=== PATIENT | male | born 1950 | race Caucasian/White ===

== ENCOUNTER → 2021-05-13 07:20 | Outpatient (CLI) | payer MEDICARE, SELFPAY ==
--- NOTE | ~2021-05-13 | US_ITS ---
EXAMINATION: US right upper quadrant EXAM DATE: 05/13/2021 08:00 INDICATION: Elevated liver function tests. TECHNIQUE: Multiple grayscale and Doppler images of the abdomen right upper quadrant were obtained (b y a technologist who performed the scan) and subsequently reviewed. Comparison is made to prior exami nation from 08/16/2016. FINDINGS: The pancreatic head and body are normal in appearance. The pancreatic tail is not visualized. There is echogenic liver parenchyma, hepatic steatosis. There are no focal liver lesions identified. Th ere is no evidence of intrahepatic biliary duct dilation. Portal venous flow was seen in the hepatop edal, normal direction and has normal Doppler waveform. No right-sided hydronephrosis. Common bile duct measures 4 mm, which is normal. The gallbladder wall is normal in thickness, with ex pected amount of distention. No sonographic evidence of pericholecystic fluid. There is no cholelit hiases. Technologist performing exam reports patient did not demonstrate sonographic Bojorquez's sign. Please note that this sign is less reliable in patients who have received pain medication. IMPRESSION: 1. Hepatic steatosis. 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 Hepatic steatosis.
== END ==
PROVIDERS: Visit Provider Internal Medicine Gastroenterology
DX: R94.5 Abnormal results of liver function studies (principal); B19.20 Unspecified viral hepatitis C without hepatic coma; K76.0 Fatty (change of) liver, not elsewhere classified
CPT/HCPCS: 76705

== ENCOUNTER 2022-02-18 19:29 | Inpatient (IN) | payer MEDICARE, SELFPAY ==
[2022-02-18] VITALS (12 sets, daily range): BP systolic 144–165; BP diastolic 80–110; PULSE 81–95; RESP 12–22; TEMP 36.2–36.7; O2SAT 95–98; BMI 26.6
--- NOTE | ~2022-02-18 | MR_ITS ---
EXAMINATION: MR brain/brain stem wo/w con DATE: 02/19/2022 15:35 INDICATION: Cerebrovascular accident. Left hemiparesis. TECHNIQUE: Magnetic resonance imaging (MRI) of the brain and brainstem was performed without and with 18 mL MultiHance intravenous contrast. COMPARISON: Head CT 02/18/2022 FINDINGS: There is an acute infarct in superior left cerebellum. There is no intracranial hemorrhage or abnormal mass lesion. There are scattered areas of nonspecific increased T2-weighted signal intens ity in the cerebral white matter, which is within normal limits for the patient's age. The ventricles are normal in size. The paranasal sinuses are clear. The mastoid air cells are normal. The orbits ar e normal. IMPRESSION: 1. 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 Reviewed, dictated and finalized at location A.
--- NOTE | ~2022-02-18 | XR_ITS ---
MODIFIED ESOPHAGRAM HISTORY: Stroke TECHNIQUE: Modified barium esophagram was performed on 02/20/2022. I administered fluoroscopy and perf ormed the exam with speech pathologist. Patient was seated for lateral fluoroscopic imaging for ernestina stion of thin liquids, pudding, solids and quantified amounts, followed by thin liquids in uncontroll ed amounts. This was recorded on tape. A single fluoroscopic spot image was also recorded. The DAP fo r this procedure was 1.387 Gycm2. The amount of fluoroscopy time used during this procedure was 1.9 m inutes. FINDINGS: Oral stage: Adequate function. Pharyngeal stage: There is reduced pharyngeal squeeze with some pharyngeal wall and vallecular residu e. No laryngeal penetration or aspiration. Cervical/esophageal stage: Adequate function. IMPRESSION: Mild pharyngeal dysphagia without laryngeal penetration or aspiration. Please correlate with speech pathologist findings and specific feeding recommendations. Reviewed, dictated and finalized at location A. IMPRESSION: Mild pharyngeal dysphagia without laryngeal penetration or aspirati on. Please correlate with speech pathologist findings and specific feeding rec ommendations.
--- NOTE | ~2022-02-18 | CT_ITS ---
Patient Name: Patient Name MR#: Patient MRN Accession#: Accession Numbers EXAMINATION: CTA brain carotid DATE: 02/18/2022 19:54 INDICATION: L sided weakness TECHNIQUE: Computed tomographic angiography (CTA) of the head was performed without and with 100 mL O mnipaque-350 intravenous contrast. CTA of the neck was performed with intravenous contrast. The dose- length product was 1888.26 mGy-cm. Maximum intensity projection and volume rendered 3D-reconstruction s were created by the technologist on a separate workstation. COMPARISON: None. FINDINGS: CT BRAIN: No acute large vessel infarct, intracranial hemorrhage, mass, or hydrocephalus. CTA HEAD: No large vessel occlusion, aneurysm, high flow vascular malformation, nidus or extravasation. Promine nt right PCOM. CTA NECK: Aortic arch and proximal great vessels: Left vertebral artery originates directly from the arch. Right common carotid, carotid bifurcation, and internal carotid artery: No significant plaque.There i s 0% stenosis of the proximal right internal carotid artery relative to normal distal artery lumen di ameter (NASCET criteria). Left common carotid, carotid bifurcation, and internal carotid artery: No significant plaque.There is 0% stenosis of the proximal left internal carotid artery relative to normal distal artery lumen diam eter (NASCET criteria). Vertebral arteries: No significant plaque or stenosis. Right vertebral artery is dominant, Other findings: Severe multilevel degenerative disc disease and facet arthropathy in the cervical spi ne. IMPRESSION: No acute large vessel infarct. No significant carotid or vertebral artery stenosis. Reviewed, dictated and finalized at location K. IMPRESSION: No acute large vessel infarct. No significant carotid or vertebral artery steno sis.
[2022-02-18 19:45] LABS: Estimated Glomerular Filt Rate > 60
--- NOTE | 2022-02-18 19:47 | ECG_ITS ---
Measurements Intervals [place] Rate: 91 P: 54 VT: 174 QRS: 113 QRSD: 157 T: -1 QT: 407 QTc: 502 Interpretive Statements SINUS RHYTHM RIGHT BUNDLE BRANCH BLOCK [120+ ms QRS DURATION, UPRIGHT V1, 40+ ms S IN I/aVL/V4/V5/V6] LEFT POSTERIOR FASCICULAR BLOCK [QRS AXIS > 109, INFERIOR Q] ABNORMAL ECG NO PREVIOUS ECG AVAILABLE FOR COMPARISON Electronically Signed On 02-19-2022 16:54:33 CDT by Vinny Toribio M.D.
[2022-02-18 20:01] LABS: Basophils Absolute Auto 0.1 K/mm3 (0.0-0.1); Basophils Percent Auto 0.7 % (0.2-1.2); Eosinophils Absolute Auto 0.2 K/mm3 (0-0.3); Eosinophils Percent Auto 1.9 % (0-4.4); Hematocrit 43.9 % (42.0-52.0); Hemoglobin 14.2 g/dL (14.0-18.0); Immature Granulocyte Absolute 0.03 K/mm3 (0.00-0.031); Immature Granulocyte Percent A 0.4 % (0-0.5); Lymphocytes Absolute Auto 2.55 K/mm3 (0.9-3.2); Lymphocytes Percent Auto 30.9 % (18.3-44.2); Mean Corpuscular HGB Conc 32.3 g/dl (32-36); Mean Corpuscular Hemoglobin 24.8 pg (26-34); Mean Corpuscular Volume 76.6 fl (80-100); Mean Platelet Volume 10.9 fl (7.4-10.4); Monocytes Absolute Auto 0.6 K/mm3 (0.1-0.6); Monocytes Percent Auto 7.3 % (2.6-8.5); Neutrophils Absolute Auto 4.9 K/mm3 (1.3-6.7); Neutrophils Percent Auto 58.8 % (45.5-73.1); Platelet Count Result 193 k/mm3 (150-375); Red Blood Count 5.73 M/mm3 (4.6-6.20); Red Cell Distribution Width 14.6 % (11.5-14.5); White Blood Count 8.3 K/mm3 (4.5-10.0)
--- NOTE | 2022-02-18 20:02 | ED.GENADULT ---
HPI - General Adult General Chief complaint: Suspected CVA Stated complaint: l sided weakness Time Seen by Provider: 02/18/22 19:30 History of Present Illness HPI narrative: Patient 71-year-old gentleman who presents the emergency department with chief complaint of left-sided weakness. The patient reports that around 630. Patient reports that he had weakness develops on the left side of his body and felt as though he could not walk. Patient noticed that his speech was a little slurred at the time reports that his symptoms have been improving. EMS was called and they noted a fast ED score of 1 due to patient reporting that his speech felt off. Related Data Allergies Allergy/AdvReac Type Severity Reaction Status Date / Time NKDA Allergy Unknown Uncoded 12/15/02 12:23 NKFA Allergy Unknown Uncoded 12/15/02 12:23 Review of Systems Review of Systems: A 10 system review of systems was completed on the patient and is negative except for what is stated in the HPI. Nursing and ancillary documentation was reviewed. PMFSH Comments History of hypertension and diabetes that is controlled with oral medications Exam Narrative: GENERAL: Well-appearing, well-nourished, and in no acute distress. HEAD: Normocephalic, atraumatic. EYES: PERRLA and EOMI. ENT: Nares clear, no rhinorrhea or epistaxis. Mucous membranes moist. NECK: Supple. CHEST: Clear to auscultation. No respiratory distress. HEART: Regular rate and rhythm. No murmur heard. Normal peripheral pulses. ABDOMEN: Soft, nontender, nondistended, normal active bowel sounds. EXTREMITIES: Normal range of motion. No edema. SKIN: Warm, dry, no rash. NEURO: No focal deficits. Alert and oriented x3. Patient had some limb ataxia of the left upper extremity, and a slight drift of the left upper extremity on exam. PSYCH: Normal mood and affect. Course Course Emergency Course: Case was discussed with stroke neurology on-call at [facility]. At this time the patient is not a tPA candidate and not a candidate for intervention as his NIH stroke scale is extremely low. I recommended local admission with stroke work-up. Vital Signs Vital signs: Vital Signs Temperature 36.2 C L 02/18/22 19:54 Pulse Rate 95 02/18/22 19:54 Respiratory Rate 20 02/18/22 19:54 Blood Pressure 161/92 H 02/18/22 19:54 Pulse Oximetry 97 02/18/22 19:54 Oxygen Delivery Room Air 02/18/22 19:54 Temperature 36.2 C L 02/18/22 19:54 Pulse Rate 95 02/18/22 19:54 Respiratory Rate 20 02/18/22 19:54 Blood Pressure 161/92 H 02/18/22 19:54 Pulse Oximetry 97 02/18/22 19:54 Oxygen Delivery Room Air 02/18/22 19:54 Medical Decision Making Vital Signs Vital Signs: Vital Signs Temperature 36.2 C L 02/18/22 19:54 Pulse Rate 95 02/18/22 19:54 Respiratory Rate 20 02/18/22 19:54 Blood Pressure 161/92 H 02/18/22 19:54 Pulse Oximetry 97 02/18/22 19:54 Oxygen Delivery Room Air 02/18/22 19:54 Temperature 36.2 C L 02/18/22 19:54 Pulse Rate 95 02/18/22 19:54 Respiratory Rate 20 02/18/22 19:54 Blood Pressure 161/92 H 02/18/22 19:54 Pulse Oximetry 97 02/18/22 19:54 Oxygen Delivery Room Air 02/18/22 19:54 Lab Data Result diagrams: 02/18/22 19:51 02/18/22 19:51 Labs: Lab Results 02/18/22 02/18/22 02/18/22 Range/Units 19:44 19:51 19:51 WBC 8.3 (4.5-10.0) K/mm3 RBC 5.73 (4.6-6.20) M/mm3 Hgb 14.2 (14.0-18.0) g/dL Hct 43.9 (42.0-52.0) % MCV 76.6 L (80-100) fl MCH 24.8 L (26-34) pg MCHC 32.3 (32-36) g/dl RDW 14.6 H (11.5-14.5) % Plt Count 193 (150-375) k/mm3 MPV 10.9 H (7.4-10.4) fl Immature Gran % (Auto) 0.4 (0-0.5) % Neut % (Auto) 58.8 (45.5-73.1) % Lymph % (Auto) 30.9 (18.3-44.2) % Tyler % (Auto) 7.3 (2.6-8.5) % Eos % (Auto) 1.9 (0-4.4) % Baso % (Auto) 0.7 (0.2-1.2) % Lymph # (Auto) 2.55 (0.9-3.2) K/mm3 Tyler # (A
[2022-02-18 20:11] LABS: Alanine Aminotransferase 21 U/L (6-50); Albumin Level 4.8 g/dL (3.5-5.1); Alkaline Phosphatase 91 U/L (38-126); Anion Gap 15 mmol/L (8-16); Aspartate Amino Transferase 29 U/L (17-59); Bilirubin,Total 0.5 mg/dL (0.2-1.3); Blood Urea Nitrogen 16 mg/dL (9-20); Calcium 9.1 mg/dL (8.4-10.2); Carbon Dioxide 22 mmol/L (22-30); Chloride 104 mmol/L (98-107); Estimated Glomerular Filt Rate 60; Glucose 185 mg/dL (65-110); Potassium 3.7 mmol/L (3.4-5.0); Sodium 141 mmol/L (137-145)
[2022-02-18 20:12] LABS: Lactic Acid Reflex 1.4 mmol/L (0.7-2.0)
[2022-02-18 20:22] LABS: INR 1.1; Prothrombin Time 13.5 Seconds (11.1-14.7)
[2022-02-18 20:23] LABS: Partial Thromboplastin Time 23.8 SECONDS (22.3-36.8); Troponin I < 0.012 ng/mL (0.000-0.034)
[2022-02-18] MEDS: SODIUM CHLORIDE 0.9% IV 1,000 ML 999 ML IV CONT (20:38)
[2022-02-18] MEDS: METOCLOPRAMIDE HCL INJ 10 MG/2 ML VIAL IV PUSH (20:51)
[2022-02-18 20:56] LABS: Appearance Urine Clear (Clear); Bilirubin Urine Negative (Negative); Blood Urine Negative (Negative); Color Urine Yellow (Yellow); Glucose Urine UA 3+ mg/dL (Negative); Ketones Urine Negative (Negative); Leukocyte Esterase Ur Negative LEU/UL (Negative); Nitrate Urine Negative (Negative); Protein Urine Negative (Negative); Urobilinogen Urine 0.2 mg/dL (<2.0)
--- NOTE | 2022-02-18 20:56 | PM.IMHP ---
H&P: HPI History of Present Illness Date/Time: 02/18/22 20:56 Chief Complaint: left-sided weakness Narrative: This is a 71-year-old male with past medical history significant for hypertension, type 2 diabetes mellitus, gastroesophageal reflux disease, patient comes to the emergency room after he had an episode of right-sided weakness, this was at around 6 30-7 p.m. last time the patient was normal was around that time, he denies any issues before this time, no lightheadedness, no syncope, no near syncope, no fevers, no rigors, no chills, no cough, no sputum production, no nausea, no of , no abdominal pain, no diarrhea, no headaches, no vision changes, no vertigo, no focal sensorimotor deficit. Patient was feeding his cats outside when this episode took place immediately 1 going inside the house patient felt weakness of the left side was stumbling around and had slight headache on the left frontal temporal area. in emergency room patient was found to have a score of 2 in the stroke scale a stroke team Luke morales was consulted and he was felt the patient was not a candidate for tPA. Patient is been placed in observation for further management evaluation and treatment. Review of Systems Review of Systems: Left-sided weakness Constitutional: Constitutional: Denies chills, Denies fatigue, Denies fever(s), Denies malaise, Denies night sweats, Denies poor appetite and Denies weakness Eyes: Eyes: Denies change in vision ENT: Denies dysphagia, Denies vertigo, Denies dizziness and Denies odynophagia Cardiovascular: Cardiovascular: Denies syncope, Denies irregular heart rhythm, Denies lightheadedness, Denies palpitations and Denies dyspnea on exertion Respiratory: Respiratory: Denies chest congestion, Denies cough, Denies excessive phlegm production, Denies pain on inspiration, Denies dyspnea and Denies dyspnea on exertion Gastrointestinal: Gastrointestinal: Denies abdominal pain, Denies dyspepsia, Denies heartburn, Denies diarrhea, Denies nausea and Denies vomiting Genitourinary: Genitourinary: Denies dysuria Musculoskeletal: Musculoskeletal: Denies arthralgias, Denies joint swelling, Denies muscle weakness, Denies neck pain and Denies numbness Integumentary/Breasts: Skin/Breast: Denies rash Neurologic: Reports abnormal gait, Denies vertigo, Denies dizziness, Denies syncope, Reports focal weakness ( left hemibody), Denies Other visual disturbances, Denies Sensory deficit (Neuro) and Reports weakness Psychiatric: Psychiatric: Reports no additional psychiatric complaints and Reports as per HPI Endocrine: Endocrine: Denies cold intolerance, Denies flushing, Denies heat intolerance, Denies polyphagia, Denies polydipsia and Denies palpitations Hematologic/Lymphatic: Hematologic/Lymphatic: Reports no additional hematologic/lymphatic complaints and Reports as per HPI Allergic/Immunologic: Allergic/Immunologic: Reports no additional allergic/immunologic complaints and Reports as per HPI PMFSH Family History Family History (Updated 02/18/22 @ 23:54 by ANSELMO Arndt) Mother Myasthenia gravis Hyperlipidemia Emphysema of lung Father Diabetes mellitus Heart disease Hypertension Dementia Daughter Graves disease Alopecia Social History Social History Smoking packs per day: 2 Smoking cigarettes per day: 40.0 Years smoked: 34 Smoking pack-years: 68.00 Smoking status: Former smoker Tobacco type: cigarettes Smoking end date: 02/19/00 Alcohol intake: former Drinks per week: 3 Substance use: never Spiritual care concerns: No Meds Home Medications and Allergies Home Medications Medication Instructions Recorded Confirmed Type amlodipine 10 mg tablet 10 mg PO DAILY 02/19/22 02/19/22 History dapagliflozin 10 mg tablet 10 mg PO DAILY 02/19/22 02/19/22 History (Cat[place]) dicyclomine 10 mg capsule 20 mg PO DAILY 02/19/22 0
[2022-02-18 21:02] LABS: Mucus Urine Rare /lpf; RBC Urine 0-2 /hpf (0-2)
[2022-02-18 21:08] LABS: Add Urine Microscopic? YES
[2022-02-18 21:20] LABS: Amphetamine Screen Urine Negative (Negative); Barbiturate Screen Urine Negative (Negative); Benzodiazepines Screen Urine Negative (Negative); Cannabinoid Screen Urine Negative (Negative); Cocaine Screen Urine Negative (Negative); Methadone Screen Urine Negative (Negative); Opiate Screen Urine Negative (Negative); Phencyclidine Screen Urine Negative (Negative)
[2022-02-18 21:44] LABS: Influenza A QL RT-PCR Negative (Negative); Influenza B QL RT-PCR Negative (Negative); SARS-CoV-2 RNA PCR Negative
--- NOTE | 2022-02-18 22:14 | PC.NURSE ---
Called IMU and nurse stated they were unaware they were getting a patient. House sup states that IMU charge is in a rapid response.
--- NOTE | 2022-02-18 22:35 | PC.NURSE ---
Called IMU to give report spoke to Chely. Nurse states staff is still in with the Rapid response team.
[2022-02-18 23:10] LABS: Troponin I < 0.012 ng/mL (0.000-0.034)
[2022-02-18 23:29] LABS: Glucose Point of Care 194 mg/dl (65-105)
--- NOTE | 2022-02-18 23:31 | ADMGEN ---
This patient, Miguel Cobos, was admitted to IMU Room 214-01. Patient/family oriented to hospital policies and general routines including ID bracelet, bed and alarms, visiting hours, pain management, procedures, bathroom and other care routines, personal items, smoking policy, room service/diet, and visiting hours. Information on how to activate the Rapid Response Team has been discussed. Patient/Family are encouraged to report perceived risks to care and to ask questions if they do not understand what they are told or what they should do.
[2022-02-19] VITALS (16 sets, daily range): BP systolic 142–179; BP diastolic 75–91; PULSE 75–97; RESP 16–20; TEMP 36.1–36.9; O2SAT 95–100
--- NOTE | 2022-02-19 | ECHO_ITS ---
Patient Info Name: Miguel Cobos Age: 71 years : 1950 Gender: Male Ht: 72 in Wt: 196 lbs BSA: 2.14 m2 HR: 76 bpm BP: 142 / 75 mmHg Heart Rhythm: Sinus Rhythm Technical Quality: Fair Exam Date: 02/19/2022 11:20 AM Exam Location: Echo Lab Patient Status: Outpatient Admit Date: 02/18/2022 Staff Ordering Physician: Elvia Tan MD Plastic Technician: Darby Waller RDCS Attending Provider: Elvia Tan MD Referring Physician: Britney KNAPP; Exam Type: CA echo doppler color flow Study Info Indications - stroke Complete two-dimensional, color flow and Doppler transthoracic echocardiogram is performed. Summary 1. Complete two-dimensional, color flow and Doppler transthoracic echocardiogram is performed. 2. Left ventricular chamber dimension is normal. 3. Left ventricular systolic function is normal, estimated at 65-70%. 4. The left ventricular diastolic function is grade I diastolic dysfunction. 5. E/e' 11 is mildly elevated. 6. There is trace mitral valve regurgitation. 7. There is trace tricuspid valve regurgitation. 8. No pulmonary hypertension, estimated pulmonary arterial systolic pressure is 18 mmHg. Left Ventricle E/e' 11 is mildly elevated. Left ventricular chamber dimension is normal. Left ventricular systolic function is normal, estimated at 65-70%. The left ventricular diastolic function is grade I diastolic dysfunction. Right Ventricle Right ventricular systolic function is normal and with normal TAPSE 2.3 cm. Right ventricular chamber dimension is normal. Left Atria Left atrial chamber dimension is normal. Right Atria Right atrial chamber dimension is normal. Aortic Valve The aortic valve is trileaflet. There is no aortic valve stenosis. There is no aortic valve regurgitation. Pulmonic Valve There is no pulmonic regurgitation. Mitral Valve There is no mitral valve stenosis. There is trace mitral valve regurgitation. Tricuspid Valve There is trace tricuspid valve regurgitation. No pulmonary hypertension, estimated pulmonary arterial systolic pressure is 18 mmHg. Pericardium/Pleural There is no pericardial effusion. Inferior Vena Cava Normal inferior vena cava with >50% collapse upon inspiration consistent with normal right atrial pressure, 5 mmHg. Aorta The aortic root size at the sinus of Valsalva is normal. Left Ventricular Outflow Tract Name Value Normal LVOT 2D LVOT Diameter 2.1 cm LVOT Doppler LVOT Peak Gradient 3 mmHg LVOT Mean Gradient 1 mmHg LVOT VTI 17 cm LVOT VTI/AV VTI Ratio 0.5 LVOT Stroke Volume 59 ml LVOT CO 5.0 l/min LVOT CI 2.4 l/min/m2 Mitral Valve Name Value Normal MV Doppler
[2022-02-19] MEDS: SODIUM CHLORIDE 0.9% IV 1,000 ML 125 ML IV CONT ×3 (01:35→18:41)
[2022-02-19 07:50] LABS: Glucose Point of Care 163 mg/dl (65-105)
[2022-02-19] MEDS: ONDANSETRON INJ 4 MG/2 ML VIAL IV PUSH (08:24)
--- NOTE | 2022-02-19 08:40 | WPDNEURCNPN ---
Assessment and Plan Assessment and plan (1) Left-sided weakness: Code(s): R53.1 - Weakness Status: Acute Assessment and Plan: Mr. Cobos is a 71 year old male who presented with L sided weakness. Exam showed subtle weakness with L plantarflexion and some dysmetria with L FNF. Concerning for possible stroke. - MRI brain w/o contrast - Surface echo with bubble study - Continue ASA 81mg - Check A1c and Lipid panel, will need a statin Consult date: 02/19/22 Reason for consult: Concern for stroke HPI: Miguel Cobos is a 71 year old male with a history of HTN, DM, GERD who presented with L sided weakness. Last known well was 7pm on02/18/22. In addition to the L sided weakness he also had a slight headache on the L frontal area. He was also having word finding difficulty at the time. He denies any vision issues or numbness. He was taken to [facility] ED where he had an NIH score of 2. After discussion with stroke team decision was made that patient was not a candidate for tPA. He had a CT head which was negative and CTA head and neck which showed no evidence of stenosis or occlusion. He was admitted for further stroke work-up. Patient reports that today he still feels a little week but feels better. He feels like his speech is back to normal. No family history of stroke. Review of Systems Constitutional: Constitutional: Denies chills, Denies lethargy and Reports weakness Eyes: Eyes: Reports no additional eye complaints ENT: Reports system reviewed and no additional complaints, except as documented Cardiovascular: Cardiovascular: Denies chest pain Respiratory: Respiratory: Denies cough and Denies dyspnea Gastrointestinal: Gastrointestinal: Denies abdominal pain, Denies constipation and Denies diarrhea Genitourinary: Genitourinary: Reports no additional male genitourinary complaints Musculoskeletal: Musculoskeletal: Reports no additional musculoskeletal complaints Integumentary/Breasts: Skin/Breast: Reports system reviewed and no additional complaints, except as docu Neurologic: Reports as per HPI Psychiatric: Psychiatric: Reports no additional psychiatric complaints [facility] Family History Family History Mother Myasthenia gravis Hyperlipidemia Emphysema of lung Father Diabetes mellitus Heart disease Hypertension Dementia Daughter Graves disease Alopecia Social History Social History Smoking packs per day: 2 Smoking cigarettes per day: 40.0 Years smoked: 34 Smoking pack-years: 68.00 Smoking status: Former smoker Tobacco type: cigarettes Smoking end date: 02/19/00 Alcohol intake: former Drinks per week: 3 Substance use: never Spiritual care concerns: No Meds Home Medications and Allergies Home Medications Medication Instructions Recorded Confirmed Type amlodipine 10 mg tablet 10 mg PO DAILY 02/19/22 02/19/22 History dapagliflozin 10 mg tablet 10 mg PO DAILY 02/19/22 02/19/22 History (Farxiga) dicyclomine 10 mg capsule 20 mg PO DAILY 02/19/22 02/19/22 History gabapentin 100 mg capsule 100 mg PO DAILY 02/19/22 02/19/22 History glipizide 5 mg tablet 5 mg PO DAILY 02/19/22 02/19/22 History lisinopril 20 mg tablet 20 mg PO DAILY 02/19/22 02/19/22 History mecobalamin (vitamin B12) 1,000 1,000 mcg PO DAILY 02/19/22 02/19/22 History mcg chewable tablet metformin 500 mg tablet 500 mg PO DAILY 02/19/22 02/19/22 History omeprazole magnesium 20 mg 20 mg PO DAILY 02/19/22 02/19/22 History tablet,delayed release (Prilosec OTC) Allergies Allergy/AdvReac Type Severity Reaction Status Date / Time NKDA Allergy Unknown Uncoded 12/15/02 12:23 NKFA Allergy Unknown Uncoded 12/15/02 12:23 Vital Signs Vital Signs - 24 hr 02/18/22 19:54 02/18/22 20:39 02/18/22 20:45 Temperature 36.2 C L Pulse Rate 95 92 90 Respiratory Rate 20 14 12 B
[2022-02-19 11:49] LABS: Glucose Point of Care 142 mg/dl (65-105)
--- NOTE | 2022-02-19 16:25 | PCSTNOTE ---
Please refer to the Bedside Swallow Evaluation in the EMR. Please note, silent aspiration cannot be ruled out at bedside.
[2022-02-19 17:36] LABS: Glucose Point of Care 155 mg/dl (65-105)
[2022-02-19] MEDS: DICYCLOMINE HCL 10 MG CAPSULE 20 MG PO (17:41)
[2022-02-19] MEDS: CYANOCOBALAMIN 1,000 MCG TABLET 1000 MCG PO (17:41)
[2022-02-19] MEDS: lisinopriL 20 MG TABLET PO (17:41)
[2022-02-19] MEDS: GABAPENTIN 100 MG CAPSULE PO (17:42)
[2022-02-19] MEDS: PANTOPRAZOLE 40 MG TABLET PO (17:42)
[2022-02-19] MEDS: ASPIRIN 81 MG CHEWABLE TABLET PO (17:42)
[2022-02-19] MEDS: amLODIPine BESYLATE 5 MG TABLET 10 MG PO (17:42)
--- NOTE | 2022-02-19 18:03 | PM.IMPN ---
Progress Note: A&P Assessment and Plan (1) Stroke: Code(s): I63.9 - Cerebral infarction, unspecified Status: Acute Assessment and Plan: CTA with no large vessel thrombosis will obtain MRI in the morning echocardiogram in the morning 02/19/2022 interval history: 71-year-old male presented with left-sided weakness CT scan of the head and CTA of the head are essentially normal to further evaluate patient had MRI of the brain showed patient has acute left superior cerebellum infarct, cardiac echo is essentially normal with grade 1 diastolic dysfunction, patient started on aspirin and Lipitor. Plavix for 3 months, (2) Hypertension: Code(s): I10 - Essential (primary) hypertension Status: Acute Assessment and Plan: resume home meds continue to monitor (3) Type 2 diabetes mellitus: Code(s): E11.9 - Type 2 diabetes mellitus without complications Status: Acute Assessment and Plan: holding for seizure, holding metformin, holding glipizide insulin sliding scale carb consistent diet blood glucose a.c. and HS Subjective Date/time seen: 02/19/22 18:03 HPI-Narrative: ?This is a 71-year-old male with past medical history significant for hypertension, type 2 diabetes mellitus, gastroesophageal reflux disease, patient comes to the emergency room after he had an episode of right-sided weakness, this was at around 6 30-7 p.m. last time the patient was normal was around that time,? he denies any issues before this time, no lightheadedness, no syncope, no near syncope, no fevers, no rigors, no chills, no cough, no sputum production, no nausea, no of [place], no abdominal pain, no diarrhea, no headaches, no vision changes, no vertigo, no focal sensorimotor deficit.? Patient was? feeding his cats outside when this episode took place immediately 1 going inside the house patient felt weakness of the left side was stumbling around and had slight headache on the left frontal? temporal area. in emergency room patient was found to have a score of 2 in the stroke scale a stroke team Luke morales was consulted and he was felt the patient was not a candidate for tPA.? Patient is been placed in observation for further management evaluation and treatment. 02/19/2022 interval history: 71-year-old male presented with left-sided weakness CT scan of the head and CTA of the head are essentially normal to further evaluate patient had MRI of the brain showed patient has acute left superior cerebellum infarct, cardiac echo is essentially normal with grade 1 diastolic dysfunction, patient started on aspirin and Lipitor. Plavix for 3 months, Review of Systems Review of Systems: left-sided weakness Constitutional: Constitutional: Denies chills, Denies lethargy and Reports weakness Eyes: Eyes: Reports no additional eye complaints ENT: Reports system reviewed and no additional complaints, except as documented Cardiovascular: Cardiovascular: Denies chest pain Respiratory: Respiratory: Denies cough and Denies dyspnea Gastrointestinal: Gastrointestinal: Denies abdominal pain, Denies constipation and Denies diarrhea Genitourinary: Genitourinary: Reports no additional male genitourinary complaints Musculoskeletal: Musculoskeletal: Reports no additional musculoskeletal complaints Integumentary/Breasts: Skin/Breast: Reports system reviewed and no additional complaints, except as docu Neurologic: Reports as per HPI Psychiatric: Psychiatric: Reports no additional psychiatric complaints Exam Narrative: Patient is comfortable, NAD HEENT: eyes are clear and none icteric LUNGS: normal respiratory effort ABD: not distended Lower extremities: no edema MS: left-sided weakness SKIN: nonjaundiced Neuro: grossly intact. Objective Data Vital Signs Vital Signs: Vital Signs - 24 hr 02/18/22 19:54 02/18/22 20:39 02/18/22 20:45 Temperature 97.2 F L Pulse Rate 95 92 90 Respiratory Rate 20 14 12 Bl
--- NOTE | 2022-02-19 18:31 | PC.NURSE ---
This patient, Miguel Cobos, was transferred to [facility] on 02/19/22 at 1825. Personal belongings sent with patient. Report given to Hailee. Appropriate documentation sent with patient.
--- NOTE | 2022-02-19 18:35 | PC.NURSE ---
This patient, Miguel Cobos, was received from [facility] on 02/19/22 at 1835. Patient/family oriented to unit policies and routines
[2022-02-19] MEDS: CLOPIDOGREL BISULFATE 75 MG TABLET PO (18:58)
[2022-02-19] MEDS: ATORVASTATIN 40 MG TABLET PO (21:21)
[2022-02-19 21:34] LABS: Glucose Point of Care 159 mg/dl (65-105)
[2022-02-20] VITALS (9 sets, daily range): BP systolic 127–160; BP diastolic 68–75; PULSE 73–106; RESP 12–17; TEMP 36.6; O2SAT 93–98
[2022-02-20] MEDS: SODIUM CHLORIDE 0.9% IV 1,000 ML 125 ML IV CONT ×3 (02:40→20:48)
[2022-02-20] MEDS: ASPIRIN 81 MG CHEWABLE TABLET PO (08:15)
[2022-02-20] MEDS: CYANOCOBALAMIN 1,000 MCG TABLET 1000 MCG PO (08:16)
[2022-02-20] MEDS: CLOPIDOGREL BISULFATE 75 MG TABLET PO (08:16)
[2022-02-20 08:17] LABS: Glucose Point of Care 126 mg/dl (65-105)
[2022-02-20] MEDS: DICYCLOMINE HCL 10 MG CAPSULE 20 MG PO (08:32)
[2022-02-20] MEDS: GABAPENTIN 100 MG CAPSULE PO (08:32)
[2022-02-20] MEDS: PANTOPRAZOLE 40 MG TABLET PO (08:32)
[2022-02-20] MEDS: lisinopriL 20 MG TABLET PO (08:34)
[2022-02-20] MEDS: amLODIPine BESYLATE 5 MG TABLET 10 MG PO (08:34)
[2022-02-20 09:46] LABS: Glucose Point of Care 178 mg/dl (65-105)
[2022-02-20 11:39] LABS: Glucose Point of Care 128 mg/dl (65-105)
--- NOTE | 2022-02-20 12:03 | WPDNEUROPN ---
Progress Note: A&P Assessment and Plan (1) Left-sided weakness: Code(s): R53.1 - Weakness Status: Acute Assessment and Plan: Mr. Cobos is a 71 year old male who presented with L sided weakness. Exam initially showed subtle weakness with L plantarflexion and some dysmetria with L FNF. Today improvement in strength and dysmetria. MRI revealed L superior cerebellar infarct. CTA and ECHO unrevealing. - Continue ASA and Plavix x 3 months, then continue ASA monotherapy - Patient will also be discharged with Atorvastatin - Pending placement for physical therapy Subjective Date/time seen: 02/20/22 12:03 Interval history: Miguel Cobos is a 71 year old male with a history of HTN, DM, GERD who presented with L sided weakness. Last known well was 7pm on02/18/22. In addition to the L sided weakness he also had a slight headache on the L frontal area. He was also having word finding difficulty at the time. He denies any vision issues or numbness. He was taken to [facility] ED where he had an NIH score of 2. After discussion with stroke team decision was made that patient was not a candidate for tPA. He had a CT head which was negative and CTA head and neck which showed no evidence of stenosis or occlusion. He was admitted for further stroke work-up. MRI showed acute left superior cerebellar infarct yesterday. Patient reports some issues with his balance but overall feeling good. Minimal weakness. No vision changes or bulbar symptoms. Review of Systems Constitutional: Constitutional: Denies chills, Denies lethargy and Reports weakness Eyes: Eyes: Reports no additional eye complaints ENT: Reports system reviewed and no additional complaints, except as documented Cardiovascular: Cardiovascular: Denies chest pain and Denies dyspnea Respiratory: Respiratory: Denies cough and Denies dyspnea Gastrointestinal: Gastrointestinal: Denies abdominal pain, Denies constipation and Denies diarrhea Genitourinary: Genitourinary: Reports no additional male genitourinary complaints Musculoskeletal: Musculoskeletal: Reports no additional musculoskeletal complaints Integumentary/Breasts: Skin/Breast: Reports system reviewed and no additional complaints, except as docu Neurologic: Reports as per HPI and Reports weakness Psychiatric: Psychiatric: Reports no additional psychiatric complaints Exam Const: General: comfortable HENMT: Mouth: Yes moist mucous membranes Eyes: General: appearance normal, both eyes and all related structures Pupils: Equal, round and reactive pupils present EOM: EOMs intact bilaterally Other: no nystagmus Neck: Neck: supple Resp: Effort & Inspection: normal respiratory effort Cardio: Rate: regular rate Rhythm: regular rhythm Skin: General skin exam: normal color Neuro: Cranial nerves: Yes Equal, round and reactive pupils present Other: AOx3, Pupils equal and reactive bilaterally, EOMI, no nystagmus, face symmetric, facial sensation intact, tongue protrudes midline, palate midline. Shoulder shrug normal. Strength 5/5 throughout. Sensation intact throughout. Reflexes 1+ in biceps, patellar, and AJ bilaterally, FNF normal on the right and dysmetria on the left (improved from yesterdat). Language comprehension and fluency intact. Gait deferred. Extrem: General: normal to inspection Psych: Mental Status: mental status grossly normal Affect: normal affect Objective Data Vital Signs Vital Signs: Vital Signs - 24 hr 02/19/22 16:19 02/19/22 16:00 02/19/22 14:00 Temperature 36.4 C Pulse Rate 89 92 Respiratory Rate 20 Blood Pressure 179/91 H Pulse Oximetry 100 Oxygen Delivery Room Air 02/19/22 16:00 02/19/22 18:55 02/19/22 20:21 Temperature 36.9 C 36.6 C Pulse Rate 97 93 88 Respiratory Rate 18 16 Blood Pressure 146/83 H 150/76 H Pulse Oximetry 97 97 Oxygen Delivery 02/19/22 20:00 02/19/22 20:00 02/20/22 00:00 Temperature Pulse Rate 86 73 Respiratory
--- NOTE | 2022-02-20 12:04 | PM.IMPN ---
Progress Note: A&P Assessment and Plan (1) Stroke: Code(s): I63.9 - Cerebral infarction, unspecified Status: Acute Assessment and Plan: CTA with no large vessel thrombosis will obtain MRI in the morning echocardiogram in the morning 02/19/2022 interval history: 71-year-old male presented with left-sided weakness CT scan of the head and CTA of the head are essentially normal to further evaluate patient had MRI of the brain showed patient has acute left superior cerebellum infarct, cardiac echo is essentially normal with grade 1 diastolic dysfunction, patient started on aspirin and Lipitor. Plavix for 3 months. 02/20/2022 interval history: 71-year-old male presented with left-sided weakness CT scan of the head and CTA of the head are essentially normal to further evaluate patient had MRI of the brain showed patient has acute left superior cerebellum infarct, cardiac echo is essentially normal with grade 1 diastolic dysfunction, patient started on aspirin and Lipitor. Plavix for 3 months. Today patient worked with PT and felt weakness in his left side, patient well need PT to help improve his weakness, patient will benefit going to acute rehab as patient motivated to get better. (2) Hypertension: Code(s): I10 - Essential (primary) hypertension Status: Acute Assessment and Plan: resume home meds continue to monitor (3) Type 2 diabetes mellitus: Code(s): E11.9 - Type 2 diabetes mellitus without complications Status: Acute Assessment and Plan: holding for seizure, holding metformin, holding glipizide insulin sliding scale carb consistent diet blood glucose a.c. and HS Subjective Date/time seen: 02/20/22 12:04 02/20/2022 interval history: 71-year-old male presented with left-sided weakness CT scan of the head and CTA of the head are essentially normal to further evaluate patient had MRI of the brain showed patient has acute left superior cerebellum infarct, cardiac echo is essentially normal with grade 1 diastolic dysfunction, patient started on aspirin and Lipitor. Plavix for 3 months. Today patient worked with PT and felt weakness in his left side, patient well need PT to help improve his weakness, patient will benefit going to acute rehab as patient motivated to get better. Review of Systems Review of Systems: patient complained of left sided weakness. Exam Narrative: Patient is comfortable, NAD HEENT: eyes are clear and none icteric LUNGS: normal respiratory effort ABD: not distended Lower extremities: no edema MS: left-sided weakness SKIN: nonjaundiced Neuro: grossly intact. Objective Data Vital Signs Vital Signs: Vital Signs - 24 hr 02/19/22 16:19 02/19/22 16:00 02/19/22 14:00 Temperature 97.6 F Pulse Rate 89 92 Respiratory Rate 20 Blood Pressure 179/91 H Pulse Oximetry 100 Oxygen Delivery Room Air 02/19/22 16:00 02/19/22 18:55 02/19/22 20:21 Temperature 98.4 F 98 F Pulse Rate 97 93 88 Respiratory Rate 18 16 Blood Pressure 146/83 H 150/76 H Pulse Oximetry 97 97 Oxygen Delivery 02/19/22 20:00 02/19/22 20:00 02/20/22 00:00 Temperature Pulse Rate 86 73 Respiratory Rate Blood Pressure Pulse Oximetry Oxygen Delivery Room Air 02/20/22 04:00 02/20/22 04:53 02/20/22 08:00 Temperature 98 F Pulse Rate 74 81 Respiratory Rate 12 Blood Pressure 127/71 Pulse Oximetry 93 Oxygen Delivery Room Air 02/20/22 10:34 02/20/22 08:00 Temperature Pulse Rate 84 Respiratory Rate Blood Pressure Pulse Oximetry Oxygen Delivery Room Air Intake/Output Intake/Output: Intake & Output 02/17/22 02/18/22 02/19/22 02/20/22 23:59 23:59 23:59 23:59 Intake Total 1000 2270 2590 Output Total 2040 700 Balance 9248 598 5009 Meds/Results Medications: Active Medications Generic Name Dose Route Start Last Admin Trade Name Freq PRN Reason Stop Dose Admin Amlodipin
--- NOTE | 2022-02-20 12:25 | PC.NURSE ---
pt. transported off the floor for swallow study at 12:24, via chair, IV saline locked
--- NOTE | 2022-02-20 14:03 | PCSTNOTE ---
Modified barium swallow. Patient's swallowing function WFL for the most part. Premature spillage to pyriform sinuses with mixed consistency. Some residue in pyriform sinuses with all consistencies, but patient able to clear with multiple swallows. Speech therapy to treat for swallowing recommended. Thin liquids and Level 6 diet (soft and bite sized) recommended. Thank you for the referral of this patient. [ End ]
[2022-02-20 16:54] LABS: Glucose Point of Care 116 mg/dl (65-105)
[2022-02-20] MEDS: ATORVASTATIN 40 MG TABLET PO (20:48)
[2022-02-20 21:32] LABS: Glucose Point of Care 156 mg/dl (65-105)
[2022-02-21] VITALS (8 sets, daily range): BP systolic 139–180; BP diastolic 73–92; PULSE 81–101; RESP 16–20; TEMP 36.6–36.9; O2SAT 95–99
[2022-02-21] MEDS: SODIUM CHLORIDE 0.9% IV 1,000 ML 125 ML IV CONT ×3 (03:50→21:24)
[2022-02-21] MEDS: GABAPENTIN 100 MG CAPSULE PO (08:10)
[2022-02-21] MEDS: lisinopriL 20 MG TABLET PO (08:10)
[2022-02-21] MEDS: PANTOPRAZOLE 40 MG TABLET PO (08:11)
[2022-02-21] MEDS: CLOPIDOGREL BISULFATE 75 MG TABLET PO (08:11)
[2022-02-21] MEDS: ASPIRIN 81 MG CHEWABLE TABLET PO (08:11)
[2022-02-21] MEDS: DICYCLOMINE HCL 10 MG CAPSULE 20 MG PO (08:11)
[2022-02-21] MEDS: CYANOCOBALAMIN 1,000 MCG TABLET 1000 MCG PO (08:12)
[2022-02-21] MEDS: amLODIPine BESYLATE 5 MG TABLET 10 MG PO (08:12)
[2022-02-21 08:23] LABS: Glucose Point of Care 122 mg/dl (65-105)
[2022-02-21 11:56] LABS: Glucose Point of Care 178 mg/dl (65-105)
--- NOTE | 2022-02-21 16:48 | PM.DS ---
DS: Summary Time Spent with Patient Time attestation: Total time spent providing and/or coordinating discharge services: DS: Data Data Completed and Pending Labs on day of discharge: Labs from last 24 hours 02/21/22 02/21/22 02/20/22 11:54 08:20 20:51 POC Capillary Glucose 178 H 122 H 156 H 02/20/22 16:47 POC Capillary Glucose 116 H Discharge Plan Discharge Attending physician on discharge: Reese Kelly Consulting providers: Saravanan Mills Discharging Clinician: Reese Kelly Patient Disposition: Home, Self-Care Activity: as tolerated Diet: heart healthy Discharge Instructions: patient to follow-up with his primary care provider as soon as possible, patient will take aspirin and Plavix for 3 months, thereafter will continue aspirin daily and Lipitor daily, patient is instructed if any symptoms redeveloped to go to nearest emergency department. Patient is started on statin he needs to have his liver enzymes check in 6 weeks by his primary care provider. Patient Instructions: Antibiotic Form, Ischemic Stroke (GEN), Stroke (DC), Right Hemispheric Stroke (GEN) Stand Alone Forms: General Discharge Information Follow-up/Referrals: Saravanan Mills MD [Physician] - Mani Ho MD [Primary Care Provider] - Discharge Medications: New clopidogrel 75 mg Tablet 75 mg PO QAM Qty: 90 0RF aspirin [Children's Aspirin] 81 mg Tablet,Chewable 81 mg PO DAILY@0800 Qty: 90 0RF atorvastatin 40 mg Tablet 40 mg PO HS Qty: 30 0RF Continued metformin 500 mg tablet 500 mg PO DAILY lisinopril 20 mg tablet 20 mg PO DAILY amlodipine 10 mg tablet 10 mg PO DAILY gabapentin 100 mg capsule 100 mg PO DAILY dicyclomine 10 mg capsule 20 mg PO DAILY glipizide 5 mg tablet 5 mg PO DAILY omeprazole magnesium [Prilosec OTC] 20 mg Tablet,Delayed Release (Dr/Ec) 20 mg PO DAILY Farxiga 10 mg tablet 10 mg PO DAILY mecobalamin (vitamin B12) 1,000 mcg Tablet,Chewable 1,000 mcg PO DAILY Date of admission: 02/20/22 11:20 Primary Care Provider: Mani Ho Admitting Provider: Elvia Tan V. Attending physician on admission: Elvia Tan V.
[2022-02-21 17:28] LABS: Glucose Point of Care 133 mg/dl (65-105)
--- NOTE | 2022-02-21 18:32 | PCCCNOTE ---
Addendum entered by Bouchra Leslie RN 02/21/22 18:47: Called back to [facility] and spoke with supercharger repair supervisorJessica, she states that she has notified Dr. Kelly Original Note: Called by [address] [place] [address] to meet with patient since acute rehab is denied and patient feels that he has to leave. Met with patient bedside w/ spouse, explained the levels of rehab acute rehab and group home rehab. Explained that acute rehab was denied but group home facility rehab is being reviewed and referrals have been sent so there isn't a determination yet. Patient states that what are the options if he leaves tonight, resident care assistant explains that can send referrals to home health agencies but we will not know what agency has signed you on as a patient or how soon they could start home health. Per therapy treatment, min assist x1 with walking, explained what that means to and patient. Patient and spouse verbalize that they feel more informed; their understanding was that all rehab was denied and they didn't have any options. data coordinator states that it is up to them and will give them sometime to discuss and how resident care assistant can assist. Patient and spouse have discussed and patient will stay the night, additional therapy and await SNF determination. Bedside INNA mejia.
--- NOTE | 2022-02-21 19:06 | PM.IMPN ---
Progress Note: A&P Assessment and Plan (1) Stroke: Code(s): I63.9 - Cerebral infarction, unspecified Status: Acute Assessment and Plan: 02/21/2022 interval history:? 71-year-old male presented with left-sided weakness CT scan of the head and CTA of the head are essentially normal to further evaluate patient had MRI of the brain showed patient has acute left superior cerebellum infarct, cardiac echo is essentially normal with grade 1 diastolic dysfunction, patient started on aspirin and Lipitor.? Plavix for 3 months. Today patient worked with PT and felt weakness in his left side, however patient is requiring contact support, insurance company did not approve acute rehab patient decided to to nursing for further rehab tire care manager is working with the patient and further recommendation to follow patient well need PT to help improve his weakness, (2) Hypertension: Code(s): I10 - Essential (primary) hypertension Status: Acute Assessment and Plan: continue home regimen and permissively monitor (3) Type 2 diabetes mellitus: Code(s): E11.9 - Type 2 diabetes mellitus without complications Status: Acute Assessment and Plan: will continue home regimen and monitor Subjective Date/time seen: 02/21/22 19:06 02/21/2022 interval history:? 71-year-old male presented with left-sided weakness CT scan of the head and CTA of the head are essentially normal to further evaluate patient had MRI of the brain showed patient has acute left superior cerebellum infarct, cardiac echo is essentially normal with grade 1 diastolic dysfunction, patient started on aspirin and Lipitor.? Plavix for 3 months. Today patient worked with PT and felt weakness in his left side, however patient is requiring contact support, insurance [employer] did not approve acute rehab patient decided to to nursing for further rehab tire care manager is working with the patient and further recommendation to follow patient well need PT to help improve his weakness, Review of Systems Review of Systems: patient complained of left sided weakness. Exam Narrative: Patient is comfortable, NAD HEENT: eyes are clear and none icteric LUNGS: normal respiratory effort ABD: not distended Lower extremities: no edema MS: left-sided weakness SKIN: nonjaundiced Neuro: grossly intact. Objective Data Vital Signs Vital Signs: Vital Signs - 24 hr 02/20/22 19:22 02/20/22 20:00 02/21/22 00:00 Temperature 97.9 F Pulse Rate 91 91 99 Respiratory Rate 17 Blood Pressure 160/68 H Pulse Oximetry 98 Oxygen Delivery 02/20/22 20:00 02/21/22 03:58 02/21/22 04:00 Temperature 97.8 F Pulse Rate 81 81 Respiratory Rate 18 Blood Pressure 139/81 Pulse Oximetry 96 Oxygen Delivery Room Air 02/21/22 08:00 02/21/22 08:00 02/21/22 12:00 Temperature Pulse Rate 101 H 82 Respiratory Rate Blood Pressure Pulse Oximetry Oxygen Delivery Room Air 02/21/22 14:13 02/21/22 16:00 Temperature 97.9 F Pulse Rate 85 85 Respiratory Rate 16 Blood Pressure 149/73 H Pulse Oximetry 95 Oxygen Delivery Intake/Output Intake/Output: Intake & Output 02/18/22 02/19/22 02/20/22 02/21/22 23:59 23:59 23:59 23:59 Intake Total 1000 2270 4520 3260 Output Total 2040 2300 1800 Balance 2634 932 0713 1460 Meds/Results Medications: Active Medications Generic Name Dose Route Start Last Admin Trade Name Michael PRN Reason Stop Dose Admin Amlodipine Besylate 10 mg 02/19/22 09:00 02/21/22 08:12 Amlodipine Besylate 5 Mg Tablet PO 10 mg DAILY NICOLE Administration Aspirin 81 mg 02/19/22 08:00 02/21/22 08:11 Aspirin 81 Mg Chewable Tablet PO 81 mg DAILY@0800 NICOLE Administration Atorvastatin Calcium 40 mg 02/19/22 21:00 02/20/22 20:48 Atorvastatin 40 Mg Tablet PO 40 mg HS NICOLE Administration Clopidogrel Bisulfate 75 mg 02/19/22 18:30 02/21/22 08:11 Clopidogrel Bisulfate 75 Mg Tablet PO
[2022-02-21] MEDS: ATORVASTATIN 40 MG TABLET PO (20:19)
[2022-02-21 20:58] LABS: Glucose Point of Care 147 mg/dl (65-105)
[2022-02-22] MEDS: SODIUM CHLORIDE 0.9% IV 1,000 ML 125 ML IV CONT ×2 (05:25→13:37)
[2022-02-22 06:31] VITALS: BP 130/74; PULSE 75; RESP 20; TEMP 36.6; O2SAT 98
[2022-02-22] MEDS: CLOPIDOGREL BISULFATE 75 MG TABLET PO (08:14)
[2022-02-22] MEDS: ASPIRIN 81 MG CHEWABLE TABLET PO (08:14)
[2022-02-22] MEDS: GABAPENTIN 100 MG CAPSULE PO (08:14)
[2022-02-22] MEDS: CYANOCOBALAMIN 1,000 MCG TABLET 1000 MCG PO (08:14)
[2022-02-22] MEDS: PANTOPRAZOLE 40 MG TABLET PO (08:15)
[2022-02-22] MEDS: lisinopriL 20 MG TABLET PO (08:15)
[2022-02-22] MEDS: amLODIPine BESYLATE 5 MG TABLET 10 MG PO (08:15)
[2022-02-22] MEDS: DICYCLOMINE HCL 10 MG CAPSULE 20 MG PO (08:15)
[2022-02-22 09:08] LABS: Glucose Point of Care 147 mg/dl (65-105)
[2022-02-22 13:05] LABS: Glucose Point of Care 183 mg/dl (65-105)
--- NOTE | 2022-02-22 14:24 | PM.DS ---
DS: Admitting Diagnosis Discharge Date 02/22/22 Admitting Diagnosis cva DS: Discharge Diagnosis Discharge Diagnosis (1) Stroke: Code(s): I63.9 - Cerebral infarction, unspecified Status: Acute Assessment and Plan: 02/21/2022 interval history:? 71-year-old male presented with left-sided weakness CT scan of the head and CTA of the head are essentially normal to further evaluate patient had MRI of the brain showed patient has acute left superior cerebellum infarct, cardiac echo is essentially normal with grade 1 diastolic dysfunction, patient started on aspirin and Lipitor.? Plavix for 3 months. Today patient worked with PT and felt weakness in his left side, however patient is requiring contact support, patient has been approved for snf placement. OK for dc, fu with neurology (2) Hypertension: Code(s): I10 - Essential (primary) hypertension Status: Acute Assessment and Plan: continue home regimen and permissively monitor (3) Type 2 diabetes mellitus: Code(s): E11.9 - Type 2 diabetes mellitus without complications Status: Acute Assessment and Plan: will continue home regimen and monitor DS: Summary Hospital Course Hospital Course: see dc plan and summary Time Spent with Patient Time attestation: Total time spent providing and/or coordinating discharge services: Exam Narrative: Patient is comfortable, NAD HEENT: eyes are clear and none icteric LUNGS: normal respiratory effort ABD: not distended Lower extremities: no edema MS: left-sided weakness SKIN: nonjaundiced Neuro: grossly intact. DS: Data Data Completed and Pending Labs on day of discharge: Labs from last 24 hours 02/22/22 02/22/22 02/21/22 12:50 08:36 20:22 POC Capillary Glucose 183 H 147 H 147 H 02/21/22 17:25 POC Capillary Glucose 133 H Discharge Plan Discharge Attending physician on discharge: Vinny Hooks Consulting providers: Saravanan Mills Discharging Clinician: Vinny Hooks Anticipated Discharge Date/Time: 02/22/22 14:24 Patient Disposition: SNF Activity: as tolerated Diet: heart healthy Discharge Instructions: patient to follow-up with his primary care provider as soon as possible, patient will take aspirin and Plavix for 3 months, thereafter will continue aspirin daily and Lipitor daily, patient is instructed if any symptoms redeveloped to go to nearest emergency department. Patient is started on statin he needs to have his liver enzymes check in 6 weeks by his primary care provider. Patient Instructions: Antibiotic Form, Ischemic Stroke (GEN), Stroke (DC), Right Hemispheric Stroke (GEN) Stand Alone Forms: General Discharge Information Follow-up/Referrals: Saravanan Mills MD [Physician] - Mani Ho MD [Primary Care Provider] - Discharge Medications: New aspirin [Children's Aspirin] 81 mg Tablet,Chewable 81 mg PO DAILY@0800 Qty: 90 0RF atorvastatin 40 mg Tablet 40 mg PO HS Qty: 30 0RF clopidogrel 75 mg Tablet 75 mg PO QAM Qty: 90 0RF Continued metformin 500 mg tablet 500 mg PO DAILY lisinopril 20 mg tablet 20 mg PO DAILY amlodipine 10 mg tablet 10 mg PO DAILY gabapentin 100 mg capsule 100 mg PO DAILY dicyclomine 10 mg capsule 20 mg PO DAILY glipizide 5 mg tablet 5 mg PO DAILY omeprazole magnesium [Prilosec OTC] 20 mg Tablet,Delayed Release (Dr/Ec) 20 mg PO DAILY Farxiga 10 mg tablet 10 mg PO DAILY mecobalamin (vitamin B12) 1,000 mcg Tablet,Chewable 1,000 mcg PO DAILY Date of admission: 02/20/22 11:20 Primary Care Provider: Mani Ho Admitting Provider: Elvia Tan V. Attending physician on admission: Elvia Tan V. Condition: Guarded Prognosis
== END 2022-02-22 15:00 | DRG 65 ==
LOC: ANHED 20:11 → ANHIMU 21:58 → ANH2MED 02-19 18:26
PROVIDERS: Admitting Provider Internal Medicine; Emergency Provider Emergency Medicine; PCP Emergency Medicine; Visit Provider Family Medicine
DX: I63.9 Cerebral infarction, unspecified (principal); G81.94 Hemiplegia, unspecified affecting left nondominant side; I10 Essential (primary) hypertension; E11.9 Type 2 diabetes mellitus without complications; K21.9 Gastro-esophageal reflux disease without esophagitis; R29.702 NIHSS score 2; Z20.822 Contact with and (suspected) exposure to COVID-19; Z87.891 Personal history of nicotine dependence
CPT/HCPCS: 70496; 70498; 70553; 80053; 80307; 81001; 82948; 83605; 83735; 84484; 85025; 85610; 85730; 87502; 92526; 92610; 92611; 93005; 93306; 96361; 96374; 96375; 97110; 97162; 97165; 97530; 97535; 99285; A9270; A9577; C9803; G0378; J2405; J2765; J7030; Q9967; U0003; U0005

== ENCOUNTER 2023-03-20 13:40 | Outpatient (CLI) | payer MEDICARE, SELFPAY ==
--- NOTE | ~2023-03-20 | MR_ITS ---
MRI of the left shoulder Technique: Axial proton-density fat-sat images, coronal proton density fat-sat and T2 fat-sat images, and sagittal T1-weighted and T2 fat-sat images were acquired. Clinical History: Pain Findings: There is moderate AC joint degenerative change. Coracoclavicular, coracoacromial, and corac ohumeral ligaments are intact. Supraspinatus and infraspinatus tendons are intact, without partial or full-thickness tear. There is mild tendinosis. Subscapularis tendon is intact, with moderate to advanced tendinosis. Tendon of long head of the biceps is intact. There is probable small degenerative tear of the superior labrum, extending to the anterosuperior por tion. There is thickening and increased signal of the inferior glenohumeral ligament. There is minimal dege nerative change of the glenohumeral joint. No joint effusion present. No fluid distention of the suba cromial/subdeltoid bursa. No muscle atrophy or edema. Impression: Rotator cuff tendinosis without evidence of tear. Small degenerative tear of the superior labrum, probably extending to anterosuperior portion. Thickening and increased signal of the inferior glenohumeral ligament, which can be seen in the setti ng of adhesive capsulitis. Moderate AC joint degenerative change, and minimal glenohumeral joint degenerative change. Reviewed, dictated and finalized at [facility]. Impression: Rotator cuff tendinosis without evidence of tear. Small degenerative tear of the superior labrum, probably extending to anterosup erior portion. Thickening and increased signal of the inferior glenohumeral ligament, which ca n be seen in the setting of adhesive capsulitis. Moderate AC joint degenerative change, and minimal glenohumeral joint degenerat miguelina change.
== END 2023-03-20 13:41 | disposition home or self-care (01) ==
PROVIDERS: PCP Emergency Medicine; Visit Provider Orthopaedic Surgery
DX: M19.012 Primary osteoarthritis, left shoulder (principal)
CPT/HCPCS: 73221

== ENCOUNTER → 2023-08-16 12:32 | Outpatient (CLI) | payer MEDICARE, SELFPAY ==
--- NOTE | ~2023-08-16 | XR_ITS ---
EXAMINATION: XR hand LT min 3V INDICATION: Left hand pain and swelling TECHNIQUE: Three views of the left hand are obtained. COMPARISON: None available FINDINGS: The bones are osteopenic which limits the sensitivity for fracture however none is seen. Th ere is mild osteoarthritis of multiple interphalangeal joints as well as at the first carpometacarpal joint. The soft tissues are unremarkable. There is mild deformity of the tuft of the first distal ph alanx which has a chronic appearance. IMPRESSION: 1. No acute osseous abnormality. Reviewed, dictated and finalized at location [facility]. [facility] [employer]
== END ==
PROVIDERS: PCP Emergency Medicine; Visit Provider Emergency Medicine
DX: M79.89 Other specified soft tissue disorders (principal)
CPT/HCPCS: 73130

== ENCOUNTER 2023-10-25 12:31 | Outpatient (CLI) | payer MEDICARE, SELFPAY ==
--- NOTE | 2023-10-25 12:35 | ECHO_ITS ---
Patient Info Name: Miguel Cobos Age: 72 years : 1950 Gender: Male Ht: 72 in Wt: 209 lbs BSA: 2.21 m2 HR: 87 bpm BP: 146 / 97 mmHg Heart Rhythm: Sinus Rhythm Technical Quality: Fair Exam Date: 10/25/2023 12:38 PM Exam Location: Echo Lab Patient Status: Outpatient Admit Date: 10/25/2023 Staff Ordering Physician: Kelsi Martin MD Verifier: Darby Waller RDCS Attending Provider: Kelsi Martin MD Exam Type: CA echo dop bubble study w con Study Info Indications - cryptogenic stroke Complete two-dimentional, color flow and Doppler transthoracic echocardiogram is performed with agitated saline and with contrast to opacify the left ventricle and to improve the delineation of the left ventricle endocardial borders. Contrast/Agitated Saline Contrast/Ag. Saline: Definity Amount: 2.00 ml Administered By: Darby Waller RDCS Existing IV Access: No New IV Access: Left Site Condition: IV removed Contrast/Ag. Saline: Agitated Saline Amount: 20.00 ml Existing IV Access: No New IV Access: Left Site Condition: IV removed Summary 1. Definity contrast administered improved wall motion interpretation. 2. Left ventricular chamber dimension is normal. 3. Left ventricular systolic function is normal, estimated at 65-70%. 4. The left ventricular diastolic function is grade I diastolic dysfunction. 5. E/e' 13 is mildly elevated. 6. No pulmonary hypertension, estimated pulmonary arterial systolic pressure is 16 mmHg. Left Ventricle E/e' 13 is mildly elevated. Definity contrast administered improved wall motion interpretation. Left ventricular chamber dimension is normal. Left ventricular systolic function is normal, estimated at 65-70%. The left ventricular diastolic function is grade I diastolic dysfunction. Right Ventricle Right ventricular systolic function is normal and with normal TAPSE 2.0 cm. Right ventricular chamber dimension is normal. Left Atria Left atrial chamber dimension is normal. Right Atria Right atrial chamber dimension is normal. Atrial Septum Agitated saline injection with and without valsalva maneuver opacified right side cardiac chambers without shunt to left side cardiac chambers. Intact interatrial septum visualized by 2D and agitated saline imaging. Aortic Valve The aortic valve is trileaflet. There is no aortic valve stenosis. There is no aortic valve regurgitation. Pulmonic Valve There is no pulmonic regurgitation. Mitral Valve There is no mitral valve stenosis. There is no mitral valve regurgitation. Tricuspid Valve There is no tricuspid valve regurgitation. No pulmonary hypertension, estimated pulmonary arterial systolic pressure is 16 mmHg. Pericardium/Pleural There is no pericardial effusion. Inferior Vena Cava Normal inferior vena cava with >50% collapse upon inspiration consistent with normal right atrial pressure, 5 mmHg. Aorta The aortic root size at the sinus of Valsalva is normal. Left Ventricular Outflow Tract Name Value Normal LVOT 2D LVOT Diameter 2.0 cm LVOT Doppler LVOT Peak Gradient 3 mmHg LVOT M
[2023-10-25] MEDS: PERFLUTREN LIPID MICROSPHERES 1.5 ML VIAL DILUTED TO 10 ML TOTAL VOLUME IV PUSH (13:30)
--- NOTE | 2023-10-25 13:53 | IVDEFINITY ---
Prior to administration of IV Definity the patient was educated on the risks and benefits of the imaging enhancing agent including potential adverse side effects. The patient verbalized understanding. Allergies were verified. No exclusion criteria were identified and at least one of the following inclusion criteria were met: 1) physician request, 2) patient technically difficult to image (per the [place] [employer] guidelines of two or more segments not discernable within the apical view), or 3) questionable left ventricular function. ?
== END 2023-10-25 12:32 | disposition home or self-care (01) ==
LOC: ANHCARD 12:33
PROVIDERS: Visit Provider Student in an Organized Health Care Education/Training Program
DX: I63.9 Cerebral infarction, unspecified (principal)
CPT/HCPCS: 96375; C8929; Q9957